=== PATIENT | female | born 1975 | race Caucasian/White ===

== ENCOUNTER 2018-12-20 13:07 | Outpatient (CLI) | payer OTHER ==
[~2018-12-20] VITALS: Ht 162.6 cm; Wt 75.3 kg
[2018-12-20 13:18] VITALS: BP 119/81
[2018-12-20 13:57] LABS: BASOPHILS % (AUTO) 0 % (0-10); EOSINOPHILS # (AUTO) 0.1 10^3/uL (0.0-0.3); EOSINOPHILS % (AUTO) 2 % (0-10); HEMATOCRIT 38 % (35-52); HEMOGLOBIN 12.9 G/DL (11.5-16.0); LYMPHOCYTES # (AUTO) 1.7 X 10^3 (1.0-4.0); LYMPHOCYTES % (AUTO) 27 % (12-44); MEAN CORPUSCULAR HEMOGLOBIN 33 PG (25-34); MEAN CORPUSCULAR HGB CONC 34 G/DL (32-36); MEAN CORPUSCULAR VOLUME 96 FL (80-99); MEAN PLATELET VOLUME 9.1 FL (7.4-10.4); MONOCYTES # (AUTO) 0.5 X 10^3 (0.0-1.0); MONOCYTES % (AUTO) 8 % (0-12); NEUTROPHILS # (AUTO) 3.9 X 10^3 (1.8-7.8); NEUTROPHILS % (AUTO) 63 % (42-75); PLATELET COUNT 279 10^3/uL (130-400); RED CELL DISTRIBUTION WIDTH 12.1 % (10.0-14.5); WHITE BLOOD COUNT 6.3 10^3/uL (4.3-11.0)
[2018-12-20] MEDS ORDERED: CHOL500044 PO (15:59)
[2018-12-20] MEDS ORDERED: PROP20TA5 PO (15:59)
[2018-12-20] MEDS ORDERED: VITA1CAP PO (15:59)
[2018-12-20] MEDS ORDERED: MONT10TA24 PO (15:59)
[2018-12-20] MEDS ORDERED: CALC600T12 PO (15:59)
[2018-12-20] MEDS ORDERED: CETI10TA17 PO (15:59)
[2018-12-20] MEDS ORDERED: DESV100T PO (15:59)
[2018-12-21] MEDS ORDERED: [UNRECOGNIZED DRUG - OTHER] PO (11:29)
[2018-12-21] MEDS ORDERED: IBUP-1780 PO (11:31)
== END 2018-12-20 13:50 | disposition home or self-care (01) ==
LOC: PREOP 13:07
PROVIDERS: ATTEND Obstetrics & Gynecology
DX: Z01.812 Encounter for preprocedural laboratory examination (principal); Z11.2 Encounter for screening for other bacterial diseases; N93.9 Abnormal uterine and vaginal bleeding, unspecified; R10.2 Pelvic and perineal pain
CPT/HCPCS: 36415; 85025; 86850; 86900; 86901; 87081

== ENCOUNTER 2018-12-28 06:10 | Day surgery (SDC) | payer OTHER ==
--- NOTE | 2018-12-21 11:33 | NUR ---
CALLED [facility] FOR A LIST OF RECENTLY FILLED MEDICATIONS AND THEN CALLED THE PATIENT AND WENT OVER THEM WITH HER. [facility] FILLED: 12-06-18 IBU 800MG TID PRN #90 12-06-18 PRISTIQ 100MG DAILY #90 11-17-18 DEMULEN CONTROL (PATIENT STATES SHE IS NO LONGER TAKING THIS) 11-08-18 MONTELUKAST 10MG DAILY #90 AUG- PROPRANOLOL 20MG BID #180 OTC MEDS: ZYRTEC 10MG BID CALCIUM DAILY VITAMIN D DAILY VITAMIN B COMPLEX DAILY
[2018-12-28] VITALS (11 sets, daily range): BP systolic 81–114; BP diastolic 51–90
[~2018-12-28] VITALS: Ht 162.6 cm; Wt 75.3 kg
[~2018-12-28 06:10] MED LIST: CALC600T12 PO; CETI10TA17 PO; CHOL500044 PO; DESV100T PO; IBUP-1780 PO; MONT10TA24 PO; PROP20TA5 PO; VITA1CAP PO; [UNRECOGNIZED DRUG - OTHER] PO
--- OUTSIDE RECORDS SUMMARY | 2018-12-28 06:16 | XMS REPORT ---
Author Author BILL BROWN Organization [facility] Address [address] [place] [address] Care Team Providers Care Produce Inspector Name Role Phone BILL BROWN Unavailable PROBLEMS Type Condition ICD9-CM Code EDE26-FC Code Onset Dates Condition Status SNOMED Code Problem Menorrhagia 626.2 Feb, 0 281859853 Problem Tachycardia 785.0 Oct, 0 4090771 Problem Shingles 053.9 0 9718100 Problem Acute neck pain 723.1 May, 0 51677895 Problem PTSD (post-traumatic stress disorder) 309.81 0 92514747 Problem Hypercholesteremia E78.00 Active 72315551 Problem Sacroiliitis 720.2 Sep, 0 935823813 Problem Ankylosing spondylitis, unspecified site of spine M45.9 Active 2900098 Problem Herpes zoster 053.9 Jul, 0 4681565 Problem Premature ovarian failure 256.8 0 438734346 Problem Hypercholesteremia 272.0 Jun, 0 815385355 Problem Endometriosis 617.9 Mar, 0 613353308 Problem Crohn disease 555.9 Apr, 0 31543979 Problem Acid reflux 530.81 0 360275001 Problem Anemia 285.9 0 360964763 Problem Rheumatoid arthritis 714.0 Mar, 0 63009836 Problem Ankylosing spondylitis 720.0 Mar, 0 0112799 Problem Celiac disease 579.0 0 097933682 Problem 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 Jul, 0 802898237 Problem Fibromyalgia 729.1 Mar, 0 989918929 Problem Vitamin D deficiency 268.9 0 93368652 Problem Hyperthyroidism 242.90 May, 0 17811233 Problem Iron deficiency anemia 280.9 November, 0 30207518 Problem Anxiety 300.00 0 39703719 Problem Ankylosing spondylitis M45.9 Mar, 0 9552415 Problem Rheumatoid arthritis M06.9 15 Mar, 2010 0 92763223 Problem Acid reflux K21.9 0 729116251 Problem Anemia D64.9 0 372739253 Problem Herpes zoster B02.9 Jul, 0 0421307 Problem Iron deficiency anemia D50.9 November, 0 44741362 Problem Vitamin D deficiency E55.9 0 82098965 Problem Ankylosing spondylitis of lumbosacral region 720.0 0 1420159 Problem Chronic idiopathic urticaria L50.1 0 664595501 Problem Menorrhagia N92.0 Feb, 0 273353486 Problem Unspecified vitamin D deficiency 268.9 Aug, 0 90200778 Problem Unspecified essential hypertension 401.9 Jan, 0 80519795 Problem Tachycardia R00.0 Oct, 0 1277409 Problem Shingles B02.9 0 6228208 Problem Crohn disease K50.90 Apr, 0 15191258 Problem Chronic urinary tract infection N39.0 Apr, 0 182230117 Problem Acute right-sided thoracic back pain M54.6 May, 0 018995793 Problem Dermatitis herpetiformis L13.0 Active 290383102 Problem Ankylosing spondylitis of lumbosacral region M45.7 Active 2777404 Problem Rheumatoid arthritis, involving unspecified site, unspecified rheumatoid factor presence M06.9 Active 76547853 Problem Celiac disease K90.0 Active 636822043 Problem Sacroiliitis M46.1 Active 48528991 Problem Chronic idiopathic urticaria 708.1 0 955307239 Problem Gastroesophageal reflux disease, esophagitis presence not specified K21.9 Active 611177677 Problem Acute neck pain M54.2 May, 0 64249315 Problem Hyperthyroidism E05.90 Active 24716007 Problem Sun allergy V15.09 0 Problem Unspecified essential hypertension I10 Active 50634610 Problem Chronic urinary tract infection 599.0 Apr, 0 968753205 Problem Dry eyes, bilateral H04.123 Active 570580375 Problem Sun allergy Z91.09 Active 259157169 Problem Crohn''s disease with abscess, unspecified gastrointestinal tract location K50.914 Active 26043433 Problem Menorrhagia with irregular cycle N92.1 Active 931050203 Problem Anxiety F41.9 Active 12125390 Problem Lupus arthritis 710.0 Apr, 0 48912010 Problem Chronic fatigue R53.82 Active 20001754 Problem PTSD (post-traumatic stress disorder) F43.10 Active 41184048 Problem Dry eyes, bilateral 375.15 0 31133078 Problem Encounter to discuss test results V65.49 Feb, 0 127573496 Problem Fibromyalgia M79.7 Active 856771108 Problem Acute right-sided thoracic back pain 724.1 May, 0 608085245 Problem Menorrhagia with regular cycle N92.0 Active 176035436 Problem Lupus arthritis M32.9 02 Apr, 2013 0 22397387 Problem Endometriosis N80.9 Active 397150193 Problem Encounter to discuss test results Z71.2 Feb, 0 Problem Premature ovarian failure E28.8 Active 238085573 Problem Menses, irregular N92.6 Active 29832373 Problem Unspecified vitamin D deficiency E55.9 14 Aug, 2011 0 73784528 ALLERGIES No Information ENCOUNTERS Encounter Location Date Diagnosis [address] [address] Oct, [address] [address] Oct, Menorrhagia with irregular cycle N92.1 and Menses, irregular N92.[address] [address] Oct, Menorrhagia with irregular cycle N92.1 and Menses, irregular N92.[address] [address] Oct, Menses, irregular N92.6 ; Menorrhagia with irregular cycle N92.1 ; Endometrial thickening on ultrasound R93.89 ; Chronic fatigue R53.82 and Vitamin D deficiency E55.[address] [address] Sep, [address] [address] Sep, Screening for breast cancer Z12.[address] [address] Sep, [address] [address] Sep, Screening for breast cancer Z12.31 [id number] [place] [address] 27 Aug, [address] [address] Aug, Breast cancer screening Z12.[address] [address] 25 Aug, [address] [address] Aug, [address] [address] Aug, Frequency of urination R35.0 and Leukocytes in urine R82.998 [facility] [address] [facility] [id number] [address] 13 Aug, [address] [address] 07 Aug, 2018 [facility] [address] [facility] [id number] [address] 02 Aug, [address] [address] Jul, Rheumatoid arthritis, involving unspecified site, unspecified rheumatoid factor presence M06.9 ; Fibromyalgia M79.7 ; Endometriosis N80.9 ; Ankylosing spondylitis, unspecified site of spine M45.9 ; Hyperthyroidism E05.90 ; Crohn''s disease with abscess, unspecified gastrointestinal tract location K50.914 ; Unspecified vitamin D deficiency E55.9 ; Unspecified essential hypertension I10 ; Sacroiliitis M46.1 ; Chronic urinary tract infection N39.0 ; Lupus arthritis M32.9 ; Herpes zoster without complication B02.9 ; Dermatitis herpetiformis L13.0 ; Premature ovarian failure E28.8 ; Dry eyes, bilateral H04.123 ; Sun allergy Z91.09 ; Anemia, unspecified type D64.9 ; Gastroesophageal reflux disease, esophagitis presence not specified K21.9 ; Celiac disease K90.0 ; Anxiety F41.9 ; PTSD (post-traumatic stress disorder) F43.10 ; Ankylosing spondylitis of lumbosacral region M45.7 ; Chronic idiopathic urticaria L50.1 ; Hypercholesteremia E78.00 ; Tachycardia R00.0 and Menorrhagia with regular cycle N92.0 [facility] [id number] [place] [address] Jul, [facility] [id number] [address] Jun, [facility] [id number] [place] [address] Jun, [facility] [id number] [address] Apr, [facility] [address] [address] Feb, IMMUNIZATIONS No Known Immunizations SOCIAL HISTORY Never Assessed REASON FOR VISIT order PLAN OF CARE VITAL SIGNS MEDICATIONS Unknown Medications RESULTS No Results PROCEDURES No Known procedures INSTRUCTIONS MEDICATIONS ADMINISTERED No Known Medications MEDICAL (GENERAL) HISTORY Type Description Date Medical History Drug-induced systemic lupus erythematosus Medical History Crohn disease Medical History Rheumatoid arthritis Medical History Ankylosing spondylitis of lumbar region Medical History Vitamin D deficiency Medical History Premature ovarian failure Medical History Chronic urticaria Medical History Depression Medical History Anxiety Surgical History cholecystectomy Surgical History appendectomy Surgical History breast reconstruction - bilateral breast reduction Surgical History endometrial ablation Surgical History Hip joint clean out - fluid removal
--- OUTSIDE RECORDS SUMMARY | 2018-12-28 06:16 | XMS REPORT | Continuity of Care Document ---
Author Organization Unknown Address Unknown Allergies There is no data. Medications There is no data. Problems There is no data. Procedures There is no data. Results Test Result Range CULTURE, URINE - 09/04/18 07:57 CULTURE, URINE, ROUTINE NRG TSH w/ FREE T4 - 10/16/18 13:13 TSH 0.60 mIU/L NRG T4, FREE 0.9 ng/dL 0.8-1.8 ANEMIA PANEL - 10/16/18 13:13 IRON, TOTAL 105 mcg/dL 40-190 FERRITIN 17 ng/mL 10-232 IRON BINDING CAPACITY 407 mcg/dL (calc) 250-450 % SATURATION 26 % (calc) 11-50 CBC - 10/16/18 13:13 WHITE BLOOD CELL COUNT 7.2 Thousand/uL 3.8-10.8 RED BLOOD CELL COUNT 3.63 Million/uL 3.80-5.10 HEMOGLOBIN 12.2 g/dL 11.7-15.5 HEMATOCRIT 35.4 % 35.0-45.0 MCV 97.5 fL 80.0-100.0 MCH 33.6 pg 27.0-33.0 MCHC 34.5 g/dL 32.0-36.0 RDW 13.0 % 11.0-15.0 PLATELET COUNT 339 Thousand/uL 140-400 MPV 9.2 fL 7.5-12.5 ABSOLUTE NEUTROPHILS 4687 cells/uL 8296-2890 ABSOLUTE LYMPHOCYTES 2009 cells/uL 850-3900 ABSOLUTE MONOCYTES 432 cells/uL 200-950 ABSOLUTE EOSINOPHILS 43 cells/uL 15-500 ABSOLUTE BASOPHILS 29 cells/uL 0-200 NEUTROPHILS 65.1 % NRG LYMPHOCYTES 27.9 % NRG MONOCYTES 6.0 % NRG EOSINOPHILS 0.6 % NRG BASOPHILS 0.4 % NRG FOLATE (FOLIC ACID) - 10/16/18 13:13 FOLATE, SERUM 13.3 ng/mL NRG VITAMIN B12 - 10/16/18 13:13 VITAMIN B12 470 pg/mL 200-1100 VITAMIN D, 25-H - 10/16/18 13:13 VITAMIN D,25-OH,TOTAL,IA 54 ng/mL 30-100 Encounters ACCT No. Visit Date/Time Discharge Status Pt. Type Provider Facility Loc./Unit Complaint [id number] 11/23/2018 08:00:00 11/23/2018 23:59:59 CLS Outpatient Flaca Alexnader [facility] [id number] 10/16/2018 14:20:00 Document Registration [id number] 09/04/2018 18:20:00 Document Registration
[2018-12-28] MEDS ORDERED: LACTATED RINGERS 1,000 ML IV ONE (06:24)
[2018-12-28] MEDS ORDERED: metroNIDAZOLE 500MG/100ML IVPB 100 ML IV ONE (06:30)
[2018-12-28] MEDS ORDERED: ceFAZolin 2 GM/50 ML NS 50 ML IV ONE (06:30)
[2018-12-28] MEDS ORDERED: BUPIVACAINE 0.25% 30 ML (SENSORCAINE) VIAL ONE (06:46)
[2018-12-28] MEDS ORDERED: fentaNYL INJECTION 100 MCG/2 ML AMP ONE ×2 (06:48→09:33)
[2018-12-28] MEDS ORDERED: ONDANSETRON 4 MG/2 ML (SDV) Z0FRAN ONE ×3 (06:48→09:41)
[2018-12-28] MEDS ORDERED: GLYCOPYRROLATE 0.2 MG/ML (ROBINUL) 2 ML VIAL ONE ×2 (06:48→07:55)
[2018-12-28] MEDS ORDERED: MIDAZOLAM 2 MG/2 ML (VERSED) VIAL ONE (06:48)
[2018-12-28] MEDS ORDERED: DEXAMETHASONE 10 MG/ML (DECADRON) 1 ML VIAL ONE (06:48)
[2018-12-28] MEDS ORDERED: LIDOCAINE PF 2% 5 ML (XYLOCAINE) VIAL ONE (06:48)
[2018-12-28] MEDS ORDERED: NEOSTIGMINE 1 MG/ML 5 ML SYRINGE ONE (06:48)
[2018-12-28] MEDS ORDERED: SEVOFLURANE (ULTANE) 15 ML INHAL SOLN ONE (06:48)
[2018-12-28] MEDS ORDERED: proPOfol 200 MG/20 ML (DIPRIVAN) VIAL IV ONE (06:48)
[2018-12-28] MEDS ORDERED: ROCURONIUM 10 MG/ML 5 ML SYRINGE IV ONE (06:48)
[2018-12-28] MEDS ORDERED: LACTATED RINGERS 1,000 ML IV PRN (06:52)
[2018-12-28] MEDS ORDERED: ONDANSETRON 4 MG/2 ML (SDV) Z0FRAN IV ONE (07:00)
[2018-12-28] MEDS ORDERED: SCOPOLAMINE 1.5 MG (TRANSDERM-SCOP) PATCH TOP ONE (07:00)
[2018-12-28] MEDS ORDERED: FAMOTIDINE 20MG/2ML IV (PEPCID) IV ONE (07:00)
[2018-12-28] MEDS ORDERED: metroNIDAZOLE 500MG/100ML IVPB 100 ML ONE (07:02)
[2018-12-28] MEDS ORDERED: ceFAZolin 2 GM/50 ML NS 50 ML ONE (07:02)
--- NOTE | 2018-12-28 07:11 | Progress Note-Pre Operative ---
Pre-Operative Progress Note H&P Reviewed The H&P was reviewed, patient examined and no changes noted. Date Seen by Provider: Dec 28, 2018 Time Seen by Provider: 07:15 Date H&P Reviewed: Dec 28, 2018 Time H&P Reviewed: 07:15 Pre-Operative Diagnosis: AUB, Fibroid uterus, Endometriosis, CPP ADELA SHEFFIELD DO Dec 28, 2018 07:11
[2018-12-28] MEDS ORDERED: LACTATED RINGERS 1,000 ML IV SCH (07:13)
[2018-12-28] MEDS ORDERED: ZOLPIDEM 5 MG (AMBIEN) TAB PO PRN (07:15)
[2018-12-28] MEDS ORDERED: SIMETHICONE 80 MG (MYLICON) CHEW PO PRN (07:15)
[2018-12-28] MEDS: LACTATED RINGERS 1,000 ML IV PRN ×3 (07:15→10:20)
[2018-12-28] MEDS ORDERED: DOCUSATE SODIUM 100 MG (COLACE) CAP PO PRN (07:15)
[2018-12-28] MEDS ORDERED: ONDANSETRON 4 MG/2 ML (SDV) Z0FRAN IV PRN (07:15)
[2018-12-28] MEDS ORDERED: ANTACID SUSP 30 ML UDC (MYLANTA) PO PRN (07:15)
[2018-12-28] MEDS ORDERED: CHLORASEPTIC LOZENGE MM PRN (07:15)
--- NOTE | 2018-12-28 07:20 | Discharge Inst-Women's Service ---
Discharge Inst-Women's Serv Depart Medication/Instructions New, Converted or Re-Newed RX: RX on Chart Consults/Follow Up Additional Follow Up: Yes Orders/Referrals Dr. Langley in 7-10 days and in 8 weeks Activity Activity: Activity as Tolerated Driving Instructions: No Driving for 1 Week NO SMOKING: NO SMOKING Nothing Inside Vagina: No Douching, No Amasa, No Tampons Diet Discharge Diet: No Restrictions Symptoms to Report to : Bleeding Excessive, Pain Increased, Fever Over 101 Degrees F, Vaginal Bleeding Increase, Questions/Concerns For Any Problems or Questions: Contact Your Physician Skin/Wound Care Infection Signs and Symptoms: Increased Redness, Foul Odor of Wound, Increased Drainage, Skin Itchy or Has a Rash, Increased Swelling, Temperature Above 101 F Operative Area Clean and Dry: Keep Incision Clean/Dry Stitches/Maddy/Dermabond: Dermabond, Care of Stitches Bathing Instructions: ADELA Mike DO Dec 28, 2018 07:20
[2018-12-28] MEDS ORDERED: IBUP-844 PO (07:22)
[2018-12-28] MEDS ORDERED: DOCU100C37 PO (07:22)
[2018-12-28] MEDS ORDERED: HYDR-34 PO (07:22)
[2018-12-28] MEDS ORDERED: SIME80TA16 PO (07:22)
[2018-12-28] MEDS: ONDANSETRON 4 MG/2 ML (SDV) Z0FRAN IVP PRN ×2 (09:25→09:45)
[2018-12-28] MEDS ORDERED: KETOROLAC 30 MG/ML VIAL ONE (09:29)
[2018-12-28] MEDS ORDERED: fentaNYL INJECTION 100 MCG/2 ML AMP IVP ONE (09:30)
[2018-12-28] MEDS: KETOROLAC 30 MG/ML VIAL IV PRN ×2 (09:35→16:02)
[2018-12-28] MEDS ORDERED: PROMETHAZINE INJ 25 MG/ML (PHENERGAN) AMP ONE (10:00)
[2018-12-28] MEDS ORDERED: PROMETHAZINE INJ 25 MG/ML (PHENERGAN) AMP IVP ONE (10:15)
--- NOTE | 2018-12-28 10:30 | NUR ---
BRYN HARVEY presented to unit via BED from RECOVERY, accompanied by Elfego CHANDLER RN AFTER HAVING SURGERY. REPORT RECEIVED. BRYN HARVEY oriented to bed controls, call light, TV, heat, and A/C controls.
--- NOTE | 2018-12-28 10:43 | NUR ---
IV TUBING CONVERTED TO PUMP TUBING. INITIAL SHIFT ASSESSMENT COMPLETED; SEE INTERVENTION FOR FURTHER. LIGHTS TURNED DOWN. CALL LIGHT WITHIN REACH. PT'S MOTHER AT THE BEDSIDE.
--- NOTE | 2018-12-28 11:00 | NUR ---
SCD ON CALVES BILATERALLY. FRESH ICE WATER AND SALTINE CRACKERS PROVIDED.
[2018-12-28] MEDS ORDERED: HYDROcodone/APAP 7.5 MG/325 MG (LORTAB, LORCET PLUS) TABLET PO ONE (11:50)
[2018-12-28] MEDS: HYDROcodone/APAP 7.5 MG/325 MG (LORTAB, LORCET PLUS) TABLET PO PRN ×2 (12:03→18:09)
--- NOTE | 2018-12-28 12:03 | NUR ---
PT REMAINS IN BED, PAIN MEDS PROVIDED PER REQUEST; SEE EMAR FOR FURTHER.
--- NOTE | 2018-12-28 13:40 | NUR ---
ALY YAN'D; SEE INTERVENTION FOR FURTHER. + PERICARE. NEW PAD AND PANTIES IN PLACE. PT'S MOTHER AT THE BEDSIDE. PT UP TO THE CHAIR WITH STAND BY ASSIST, STEADY ON HER FEET, DENIES BEING LIGHT HEADED OR DIZZY. NO NEEDS VOICED AT THIS TIME.
--- NOTE | 2018-12-28 17:26 | NUR ---
DR. SHEFFIELD HERE TO SEE PT.
--- NOTE | 2018-12-28 18:05 | OPERATIVE REPORT ---
DATE OF SERVICE: 12/28/2018 PREOPERATIVE DIAGNOSES: A 43-year-old female with: 1. Fibroid uterus. 2. Abnormal uterine bleeding. 3. Dysmenorrhea. 4. Chronic pelvic pain. 5. History of endometriosis. POSTOPERATIVE DIAGNOSES: A 43-year-old female with: 1. Fibroid uterus. 2. Abnormal uterine bleeding. 3. Dysmenorrhea. 4. Chronic pelvic pain. 5. History of endometriosis. 6. Large left ovarian cyst. PROCEDURE PERFORMED: Robotic-assisted total laparoscopic hysterectomy with bilateral salpingectomy and left oophorectomy. SURGEON: Tom Sheffield DO. ANESTHESIA: General endotracheal. ESTIMATED BLOOD LOSS: 30 mL. URINE OUTPUT: 200 mL, clear at the end of the procedure. FLUIDS: 2100 mL of lactated Ringer's solution. FINDINGS: A slightly bulky and enlarged uterus, grossly normal-appearing bilateral fallopian tubes, a right ovary that is adhesed into the ovarian fossa, left ovary that is grossly enlarged and appears to be cystic with simple cystic component measuring approximately 5 cm x 6 cm, grossly normal external female genitalia. SPECIMENS SENT: Uterus, bilateral fallopian tubes and left ovary. INDICATIONS FOR PROCEDURE: This 43-year-old female is a patient that was consulted in my office for chronic pelvic pain, endometriosis, heavy bleeding and fibroid uterus. She was seen in consultation, had been worked up in the past and had undergone evaluations for endometriosis and laparoscopy for endometriosis in the past. The patient was wishing to proceed with definitive measures not only for endometriosis, but due to the fibroids and heavy bleeding. She was identified the majority of her pain being associated with her periods and not outside of her periods. Therefore, we discussed hysterectomy. We also discussed proceeding with possible oophorectomy at the time of surgery depending on the extent of endometriosis. Risks of procedure were discussed with the patient in detail. The consent itself was reviewed with the patient in detail. All of her questions were answered pertaining to the consent. We discussed the possibility of injury of surrounding structures including but not limited to bowel, bladder, ureters kidneys. We discussed the possible need for reoperation, need for blood transfusion and even . After all of her questions were answered, consent was obtained in the preoperative area and the patient was taken to the operating room. OPERATIVE REPORT IN DETAIL: Once in the operating room, anesthesia was found to be adequate, placed in dorsal lithotomy position, prepped and draped in normal sterile fashion. A timeout was performed. A Beyer catheter was placed using sterile technique. Weighted speculum was inserted in the patient's vagina. Right angle retractor was used to visualize the cervix, which was grasped at 12 o'clock position using a long Allis clamp and #0 Vicryl suture was placed in the anterior lip of the cervix and Allis clamp was then removed. I then gently sound the uterine cavity, which was found to be 8 cm. I selected an 8 cm Nisha uterine manipulator tip and a 3.5 cm colpotomy ring. I advanced this into the uterus deploying the balloon and advanced to the colpotomy ring around the vaginal fornix. Once this was in place, I removed all the other instruments from the patient's vagina and performed a change of gloves, I took my attention to the abdomen where infraumbilically I infiltrated this area using 0.25% Marcaine to make an 8 mm incision and directed a Veress needle through the incision until intraperitoneal placement was confirmed using a saline drop test. An opening pressure of 5 mmHg was noted. I proceeded to maximum pressure of 15 mmHg, at which point we removed the Veress needle and introduced an 8 mm blunt da Marty camera trocar. Once this was in place, I am able to confirm intraperitoneal placement using da Marty laparoscope. There was no evidence of damage upon entry. I had the patient placed in steep Trendelenburg and I am able to visualize all the pelvic anatomy as described in my findings above. I placed two lateral trocars, approximately 8 cm lateral to my infraumbilical trocar. These were both 8 mm trocars. The skin was infiltrated using 0.25% Marcaine and 8 mm incisions were made and trocars were placed under direct visualization of the laparoscope. Once these are in place, I am able to bring in the da Marty robot and docked in the appropriate fashion, placed in the da Marty vessel sealer in the left hand and monopolar shayla in the right hand. I then took my place at the operative console. I performed a different dissection on each side due to removal of the ovary on the left side. I started at the infundibulopelvic ligament. I bipolar cauterized and transected using the vessel sealer. I bipolar cauterized and transected the round ligament using the vessel sealer as well. I then grasped the entire broad ligament, bipolar cauterized and transected using the vessel sealer down to the level of the lower uterine segment, at which point I the anterior and posterior leaflets of the broad ligament. The anterior leaflet dissection was taken around the anterior vaginal fornix. The posterior leaflet was taken around the posterior vaginal fornix. This allowed me to skeletonize the uterine vessels laterally, which I then bipolar cauterizing and transected using the vessel sealer. On the right side, I started at the uteroovarian ligament, bipolar cauterized and transected using the vessel sealer. I dissected the ovary off the ovarian fossa, which it is adhesed to. I then created a window in the mesosalpinx and took this window using monopolar shayla down the mesosalpinx amputating the fallopian tube from its blood supply. Then, I am able to grasp the round ligament, bipolar cauterized and transected using the vessel sealer. The entire broad ligament was then grasped, bipolar cauterized and transected using the vessel sealer. Using the da Marty vessel sealer, I then took this dissection down to the lower uterine segment, at which point in similar fashion, I the anterior and posterior leaflets of the broad ligament. The anterior leaflet was taken around to the anterior vaginal fornix. The posterior leaflet was taken around the posterior vaginal fornix. This allows me to skeletonize the uterine vessels on the right side and bipolar cauterized and transected using the vessel sealer. I then performed a colpotomy at 12 o'clock position using monopolar shayla and took this circumferentially around the vaginal fornix amputating the cervix away from the vagina. The entire specimen was then able to be removed without rupture of the ovarian cyst through the vagina at that point. I then closed the lateral vaginal apices of the vaginal cuff using 2-0 Vicryl suture in a [id number]-qcrio fashion, colposuspending to the uterosacral ligaments. I closed the remainder of the vaginal cuff using 2-0 V-Loc in a running fashion, after which there was no active bleeding noted from any of my dissection planes. I then undocked the da Marty robot and proceeded with the remainder of the case laparoscopically. I copiously irrigated the pelvis using normal saline. Once again, there was no active bleeding noted from any of my dissection planes. I placed FloSeal hemostatic agent over all my planes of dissection, after which there was no active bleeding noted. I then had the patient taken out of steep Trendelenburg and released insufflation from the infraumbilical trocar and removed the lateral trocars under direct visualization of the laparoscope. Once this was done, I then introduced 10 mL of 0.25% Marcaine through the infraumbilical trocar for postoperative pain management. I removed this trocar as well. The skin was then reapproximated using 4-0 Monocryl in interrupted subcuticular stitches. Dermabond was applied to the incision and bandage was placed over these. Beyer catheter was left in place. The patient tolerated the procedure well and was taken to the recovery area in stable condition. Lap and sponge counts were correct at the end of the procedure. Instrument counts were correct as well. Two grams of Ancef and 500 mg of Flagyl were given preoperatively for infection prophylaxis. Job ID: [id number] DocumentID: [id number] Dictated Date: 12/28/2018 10:39:32 Saddle Maker Date: 12/28/2018 18:04:53 Dictated By: TOM SHEFFIELD DO
--- NOTE | 2018-12-28 18:15 | NUR ---
DISCHARGE PAPERS PROVIDED AND REVIEWED WITH PT, PT VERBALIZES UNDERSTANDING. QUESTIONS ANSWERED. PAPER SIGNED. PT'S MOTHER AT THE BEDSIDE.
--- NOTE | 2018-12-28 18:22 | NUR ---
PT DISCHARGED FROM WS-301 TO PERSONAL AUTO VIA W/C IN STABLE CONDITION ACC BY THIS RN.
[2018-12-29] MEDS ORDERED: IBUPROFEN 600 MG (MOTRIN) TAB PO PRN
--- NOTE | 2018-12-29 14:11 | Anesthesia-General Post-Op ---
General Patient Condition Mental Status/LOC: Same as Preop Cardiovascular: Satisfactory Nausea/Vomiting: Absent Respiratory: Satisfactory Pain: Controlled Complications: Absent Post Op Complications Complications None Follow Up Care/Instructions Patient Instructions None needed. Anesthesia/Patient Condition Patient Condition Patient was already discharged to home this morning. She was doing well yesterday in PACU. No anesthetic complications noted per nursing staff. CEDRIC ALVAREZ DO Dec 29, 2018 14:11
== END 2018-12-28 18:22 | disposition home or self-care (01) ==
LOC: SDC 06:10 → LDRP 10:30 → SDC 18:22
PROVIDERS: ATTEND Obstetrics & Gynecology
DX: N93.9 Abnormal uterine and vaginal bleeding, unspecified (principal); N94.6 Dysmenorrhea, unspecified; N83.02 Follicular cyst of left ovary; N88.8 Other specified noninflammatory disorders of cervix uteri; D25.1 Intramural leiomyoma of uterus; N83.12 Corpus luteum cyst of left ovary; D27.1 Benign neoplasm of left ovary; F32.9 Major depressive disorder, single episode, unspecified; F41.9 Anxiety disorder, unspecified; M06.9 Rheumatoid arthritis, unspecified; Z79.899 Other long term (current) drug therapy
CPT/HCPCS: 84703; 86850; 86900; 86901; 88307; 94664